=== PATIENT | female | born 1985 | race American Indian/Alaskan Native ===

== ENCOUNTER 2017-01-11 17:24 | Outpatient (CLI) | payer MEDICAID ==
[2017-01-11 18:42] VITALS: BP 121/79
== END 2017-01-11 20:20 | disposition home or self-care (01) ==
LOC: TRG 17:24
PROVIDERS: ATTEND Obstetrics & Gynecology
DX: O47.1 False labor at or after 37 completed weeks of gestation (principal); Z3A.37 37 weeks gestation of pregnancy
CPT/HCPCS: 59025

== ENCOUNTER 2017-01-17 06:35 | Inpatient (IN) | payer MEDICAID ==
[2017-01-17] MEDS: LACTATED RINGERS 1,000 ML IV SCH ×2 (08:05→15:12)
[2017-01-17] MEDS ORDERED: ePHEDrine SULFATE IV PRN ×2 (09:11→16:40)
[2017-01-17] MEDS ORDERED: MINERAL OIL PO PRN (09:11)
[2017-01-17] MEDS ORDERED: BRETHINE SUB-Q PRN (09:11)
[2017-01-17] MEDS ORDERED: XYLOCAINE 2% INFILTRATI ONE ×2 (09:11→19:22)
[2017-01-17] MEDS ORDERED: BRETHINE IVP PRN (09:11)
--- NOTE | 2017-01-17 09:11 | History and Physical Report ---
History of Present Illness Date of examination: 01/17/17 Date of admission: 01/17/17 06:37 Chief complaint: SROM @ 05:23 History of present illness: 31-year-old at 38+3 weeks presents in active labor, she is a [facility] patient. She is a late transfer at 30 weeks otherwise course has been unremarkable. She is GBS negative Past History Past Medical History: no pertinent history Past Surgical History: no surgical history [employer] History: denies: chlamydia, fibroids, gonorrhea, hepatitis B, hepatitis C, herpes, HIV, syphilis, trichomonas Social history: , full code. denies: smoking, alcohol abuse, prescription drug abuse, IV drug use - Obstetrical History Expected Date of Delivery: 01/27/17 Actual Gestation: 38 Week(s) 4 Day(s) : 2 Para: 0 Medications and Allergies Allergies Allergy/AdvReac Type Severity Reaction Status Date / Time No Known Allergies Allergy Verified 02/24/14 20:31 Home Medications Medication Instructions Recorded Confirmed Last Taken Type Vit No.130/Iron/FA 1 each PO QDAY 01/17/17 01/17/17 01/16/17 History [ Tablet] Active Meds: Active Medications Lactated Ringer's (Lactated Ringers) 1,000 mls @ 125 mls/hr IV DIRECT LISY Last Admin: 01/17/17 08:05 Dose: 125 mls/hr Review of Systems Constitutional: no fever, no chills Cardiovascular: no chest pain, no orthopnea, no syncope, no lightheadedness, no dyspnea on exertion, no high blood pressure Respiratory: no cough, no excessive sputum, no shortness of breath, no dyspnea on exertion Gastrointestinal: abdominal pain, no nausea, no vomiting Genitourinary: leakage of fluid, no vaginal bleeding, no vaginal discharge - Vital Signs Vital signs: Vital Signs Pulse Pulse Ox 88 98 01/17/17 07:02 01/17/17 07:02 Temp Pulse Resp BP Pulse Ox 98.5 F 86 14 116/78 98 01/17/17 08:47 01/17/17 08:59 01/17/17 08:47 01/17/17 08:47 01/17/17 08:59 - Physical Exam Abdomen: Positive: normal appearance, soft. Negative: distention, tenderness, guarding, rigidity Genitourinary (Female): Positive: normal external genitalia Uterus: Positive: enlarged (EFW ~ 3800) Adnexa: both: normal Extremities: Positive: normal - Obstetrical FHR: category 1 Cervical Dilatation: 5 Cervical Effacement Percentage: 60 station: -3 Results All other labs normal. Assessment and Plan A: 31-year-old at 33 weeks in active labor -Category 1 tracing P: -Continue routine care -Epidural when necessary -Expectant management -Anticipate normal vaginal delivery - Patient Problems (1) 38 weeks gestation of Current Visit: Yes Status: Acute (2) Active labor at term Current Visit: Yes Status: Acute
[2017-01-17 09:34] LABS: Hematocrit 34.3 % (30.3-42.9); Hemoglobin 10.8 gm/dl (10.1-14.3); Mean Corpuscular HGB Conc 32 % (30-34); Mean Corpuscular Volume 79 fl (79-97); Platelet Count 394 K/mm3 (140-440); Red Blood Count 4.36 M/mm3 (3.65-5.03); White Blood Count 8.9 K/mm3 (4.5-11.0)
[2017-01-17 09:39] LABS: Mean Corpuscular Hemoglobin 25 pg (28-32)
[2017-01-17] MEDS ORDERED: LACTATED RINGERS 1,000 ML IV SCH (10:00)
[2017-01-17] MEDS ORDERED: PITOCin/NS 30 UNIT/500ML 30 UNITS/500 ML BAG IV SCH (10:00)
[2017-01-17] MEDS ORDERED: PITOCin/NS 20 UNIT/1000ML DRIP 20 UNITS/1,000 ML BAG IV SCH (10:00)
--- NOTE | 2017-01-17 13:22 | Progress Note ---
Assessment and Plan A: 31-year-old at 33 weeks in active labor -Category 1 tracing P: -Will start augmentation of labor -Epidural when necessary -Anticipate normal vaginal delivery - Patient Problems (1) 38 weeks gestation of Current Visit: Yes Status: Acute (2) Active labor at term Current Visit: Yes Status: Acute Subjective - Subjective Date of service: 01/17/17 Interval history: No interval cervical change, still category 1 Patient reports: new complaints, loss of fluid, contractions, no vaginal bleeding Objective - Vital Signs Vital Signs: Vital Signs - 12hr 01/17/17 01/17/17 01/17/17 07:02 07:03 07:06 Temperature 98.3 F Pulse Rate 88 84 Respiratory 20 Rate Blood Pressure 130/85 O2 Sat by Pulse 98 Oximetry 01/17/17 01/17/17 01/17/17 07:07 07:12 07:17 Temperature Pulse Rate 98 H 107 H 88 Respiratory Rate Blood Pressure O2 Sat by Pulse 98 99 98 Oximetry 01/17/17 01/17/17 01/17/17 07:22 07:27 07:32 Temperature Pulse Rate 98 H 91 H 80 Respiratory Rate Blood Pressure O2 Sat by Pulse 97 99 98 Oximetry 01/17/17 01/17/17 01/17/17 07:39 07:44 07:49 Temperature Pulse Rate 86 84 105 H Respiratory Rate Blood Pressure O2 Sat by Pulse 97 98 97 Oximetry 01/17/17 01/17/17 01/17/17 07:54 07:59 08:04 Temperature Pulse Rate 97 H 95 H 94 H Respiratory Rate Blood Pressure O2 Sat by Pulse 99 99 97 Oximetry 01/17/17 01/17/17 01/17/17 08:09 08:14 08:19 Temperature Pulse Rate 89 95 H 86 Respiratory Rate Blood Pressure O2 Sat by Pulse 97 96 97 Oximetry 01/17/17 01/17/17 01/17/17 08:24 08:29 08:31 Temperature Pulse Rate 90 81 88 Respiratory Rate Blood Pressure O2 Sat by Pulse 97 96 94 Oximetry 01/17/17 01/17/17 01/17/17 08:34 08:38 08:39 Temperature Pulse Rate 85 91 H 85 Respiratory Rate Blood Pressure O2 Sat by Pulse 97 93 90 Oximetry 01/17/17 01/17/17 01/17/17 08:44 08:47 08:49 Temperature 98.5 F Pulse Rate 84 110 H 89 Respiratory 14 Rate Blood Pressure 116/78 O2 Sat by Pulse 97 96 Oximetry 01/17/17 05/14 01/ 08:54 08:59 09:04 Temperature Pulse Rate 92 H 86 90 Respiratory Rate Blood Pressure O2 Sat by Pulse 98 98 98 Oximetry 01/17/17 05//17 05/ 10:11 10:16 10:17 Temperature Pulse Rate 83 84 100 H Respiratory Rate Blood Pressure 117/86 O2 Sat by Pulse 97 97 Oximetry 01/17/17//14 01/ 10:21 10:26 10:31 Temperature Pulse Rate 80 81 92 H Respiratory Rate Blood Pressure O2 Sat by Pulse 97 98 98 Oximetry 01/17/17//01/17/17 10:36 10:41 10:46 Temperature Pulse Rate 100 H 86 81 Respiratory Rate Blood Pressure O2 Sat by Pulse 98 97 98 Oximetry 01/17/1701/17/01/17/17 10:51 10:56 11:01 Temperature Pulse Rate 107 H 102 H 93 H Respiratory Rate Blood Pressure O2 Sat by Pulse 98 97 99 Oximetry 01/17/17 01/17/17 01/17/17 11:06 11:07 11:11 Temperature Pulse Rate 91 H 81 104 H Respiratory Rate Blood Pressure 135/82 O2 Sat by Pulse 98 98 Oximetry 01/17/17//01/17/17 11:14 11:16 11:21 Temperature Pulse Rate 93 H 101 H Respiratory 14 Rate Blood Pressure O2 Sat by Pulse 98 97 Oximetry 01/17/1701/17/01/17/17 11:26 11:31 11:36 Temperature Pulse Rate 91 H 89 102 H Respiratory Rate Blood Pressure O2 Sat by Pulse 97 97 97 Oximetry 01/17/17 05/20/17 05/ 11:41 11:46 11:51 Temperature Pulse Rate 86 89 106 H Respiratory Rate Blood Pressure O2 Sat by Pulse 98 98 98 Oximetry 01/17/17 05/20/17 /20 11:56 12:01 12:06 Temperature Pulse Rate 126 H 107 H 103 H Respiratory Rate Blood Pressure O2 Sat by Pulse 99 97 98 Oximetry 01/17/17 05/17 01/17/17 12:08 12:11 12:16 Temperature Pulse Rate 100 H 87 85 Respiratory Rate Blood Pressure 126/85 O2 Sat by Pulse 97 97 Oximetry 01/17/17 01/17/17 01/17/17 12:21 12:26 12:31 Temperature Pulse Rate 103 H 103 H 88 Respiratory Rate Blood Pressure O2 Sat by Pulse 98 98 98 Oximetry 01/17/17 01/17/17 01/17/17 12:36 12:41 12:46 Temperature Pulse Rate 106 H 88 96 H Respiratory Rate Blood Pressure O2 Sat by Pulse 98 98 98 Oximetry 01/17/17 01/17/17 01/17/17 12:51 12:56 13:01 Temperature Pulse Rate 94 H 95 H 93 H Respiratory Rate Blood Pressure O2 Sat by Pulse 98 98 97 Oximetry 01/17/17 01/17/17 13:06 13:07 Temperature Pulse Rate 92 H 92 H Respiratory Rate Blood Pressure 136/87 O2 Sat by Pulse 99 Oximetry - Exam FHR: category 1 Cervical Dilatation: 6 (Per RN exam) - Labs Labs: Abnormal Labs 01/17/17 09:20 MCH 25 L RDW 18.0 H Laboratory Results - last 24 hr 01/17/17 01/17/17 09:20 09:20 WBC 8.9 RBC 4.36 Hgb 10.8 Hct 34.3 MCV 79 MCH 25 L MCHC 32 RDW 18.0 H Plt Count 394 Blood Type O POSITIVE Antibody Screen TNR DARIAN Antibody Screen Negative
--- NOTE | 2017-01-17 14:58 | Progress Note ---
Assessment and Plan A: 31-year-old at 38 weeks in active labor -Category 1 tracing P: -Place IUPC -Continue augmentation of labor -Epidural when necessary -Anticipate normal vaginal delivery - Patient Problems (1) 38 weeks gestation of Current Visit: Yes Status: Acute (2) Active labor at term Current Visit: Yes Status: Acute Subjective - Subjective Date of service: 01/17/17 Interval history: No interval cervical change, still category 1. RN unable to trace contractions, will place IUPC Patient reports: new complaints, loss of fluid, contractions, no vaginal bleeding Objective - Vital Signs Vital Signs: Vital Signs - 12hr 01/17/17 01/17/17 01/17/17 07:02 07:03 07:06 Temperature 98.3 F Pulse Rate 88 84 Pulse Rate [ Right From Monitor] Respiratory 20 Rate Blood Pressure 130/85 Blood Pressure [Right Arm] O2 Sat by Pulse 98 Oximetry 01/17/17 01/17/17 01/17/17 07:07 07:12 07:17 Temperature Pulse Rate 98 H 107 H 88 Pulse Rate [ Right From Monitor] Respiratory Rate Blood Pressure Blood Pressure [Right Arm] O2 Sat by Pulse 98 99 98 Oximetry 01/17/17 01/17/17 01/17/17 07:22 07:27 07:32 Temperature Pulse Rate 98 H 91 H 80 Pulse Rate [ Right From Monitor] Respiratory Rate Blood Pressure Blood Pressure [Right Arm] O2 Sat by Pulse 97 99 98 Oximetry 01/17/17 01/17/17 01/17/17 07:39 07:44 07:49 Temperature Pulse Rate 86 84 105 H Pulse Rate [ Right From Monitor] Respiratory Rate Blood Pressure Blood Pressure [Right Arm] O2 Sat by Pulse 97 98 97 Oximetry 01/17/17 01/17/17 01/17/17 07:54 07:59 08:04 Temperature Pulse Rate 97 H 95 H 94 H Pulse Rate [ Right From Monitor] Respiratory Rate Blood Pressure Blood Pressure [Right Arm] O2 Sat by Pulse 99 99 97 Oximetry 01/17/17 01/17/17 01/17/17 08:09 08:14 08:19 Temperature Pulse Rate 89 95 H 86 Pulse Rate [ Right From Monitor] Respiratory Rate Blood Pressure Blood Pressure [Right Arm] O2 Sat by Pulse 97 96 97 Oximetry 01/17/17 01/17/17 01/17/17 08:24 08:29 08:31 Temperature Pulse Rate 90 81 88 Pulse Rate [ Right From Monitor] Respiratory Rate Blood Pressure Blood Pressure [Right Arm] O2 Sat by Pulse 97 96 94 Oximetry 01/17/17 01/17/17 01/17/17 08:34 08:38 08:39 Temperature Pulse Rate 85 91 H 85 Pulse Rate [ Right From Monitor] Respiratory Rate Blood Pressure Blood Pressure [Right Arm] O2 Sat by Pulse 97 93 90 Oximetry 01/17/17 01/17/17 01/17/17 08:44 08:47 08:49 Temperature 98.5 F Pulse Rate 84 110 H 89 Pulse Rate [ Right From Monitor] Respiratory 14 Rate Blood Pressure 116/78 Blood Pressure [Right Arm] O2 Sat by Pulse 97 96 Oximetry 01/17/17 01/17/17 01/17/17 08:54 08:59 09:04 Temperature Pulse Rate 92 H 86 90 Pulse Rate [ Right From Monitor] Respiratory Rate Blood Pressure Blood Pressure [Right Arm] O2 Sat by Pulse 98 98 98 Oximetry 01/17/17 01/17/17 01/17/17 10:11 10:16 10:17 Temperature Pulse Rate 83 84 100 H Pulse Rate [ Right From Monitor] Respiratory Rate Blood Pressure 117/86 Blood Pressure [Right Arm] O2 Sat by Pulse 97 97 Oximetry 01/17/17 01/17/17 01/17/17 10:21 10:26 10:31 Temperature Pulse Rate 80 81 92 H Pulse Rate [ Right From Monitor] Respiratory Rate Blood Pressure Blood Pressure [Right Arm] O2 Sat by Pulse 97 98 98 Oximetry 01/17/17 01/17/17 01/17/17 10:36 10:41 10:46 Temperature Pulse Rate 100 H 86 81 Pulse Rate [ Right From Monitor] Respiratory Rate Blood Pressure Blood Pressure [Right Arm] O2 Sat by Pulse 98 97 98 Oximetry 01/17/17 01/17/17 01/17/17 10:51 10:56 11:01 Temperature Pulse Rate 107 H 102 H 93 H Pulse Rate [ Right From Monitor] Respiratory Rate Blood Pressure Blood Pressure [Right Arm] O2 Sat by Pulse 98 97 99 Oximetry 01/17/17 01/17/17 01/17/17 11:06 11:07 11:11 Temperature Pulse Rate 91 H 81 104 H Pulse Rate [ Right From Monitor] Respiratory Rate Blood Pressure 135/82 Blood Pressure [Right Arm] O2 Sat by Pulse 98 98 Oximetry 01/17/17 01/17/17 01/17/17 11:14 11:16 11:21 Temperature Pulse Rate 93 H 101 H Pulse Rate [ Right From Monitor] Respiratory 14 Rate Blood Pressure Blood Pressure [Right Arm] O2 Sat by Pulse 98 97 Oximetry 01/17/17 01/17/17 01/17/17 11:26 11:31 11:36 Temperature Pulse Rate 91 H 89 102 H Pulse Rate [ Right From Monitor] Respiratory Rate Blood Pressure Blood Pressure [Right Arm] O2 Sat by Pulse 97 97 97 Oximetry 01/17/17 01/17/17 01/17/17 11:41 11:46 11:51 Temperature Pulse Rate 86 89 106 H Pulse Rate [ Right From Monitor] Respiratory Rate Blood Pressure Blood Pressure [Right Arm] O2 Sat by Pulse 98 98 98 Oximetry 01/17/17 01/17/17 01/17/17 11:56 12:01 12:06 Temperature Pulse Rate 126 H 107 H 103 H Pulse Rate [ Right From Monitor] Respiratory Rate Blood Pressure Blood Pressure [Right Arm] O2 Sat by Pulse 99 97 98 Oximetry 01/17/17 01/17/17 01/17/17 12:08 12:11 12:16 Temperature Pulse Rate 100 H 87 85 Pulse Rate [ Right From Monitor] Respiratory Rate Blood Pressure 126/85 Blood Pressure [Right Arm] O2 Sat by Pulse 97 97 Oximetry 01/17/17 01/17/17 01/17/17 12:21 12:26 12:31 Temperature Pulse Rate 103 H 103 H 88 Pulse Rate [ Right From Monitor] Respiratory Rate Blood Pressure Blood Pressure [Right Arm] O2 Sat by Pulse 98 98 98 Oximetry 01/17/17 01/17/17 01/17/17 12:36 12:41 12:46 Temperature Pulse Rate 106 H 88 96 H Pulse Rate [ Right From Monitor] Respiratory Rate Blood Pressure Blood Pressure [Right Arm] O2 Sat by Pulse 98 98 98 Oximetry 01/17/17 01/17/17 01/17/17 12:51 12:56 13:01 Temperature Pulse Rate 94 H 95 H 93 H Pulse Rate [ Right From Monitor] Respiratory Rate Blood Pressure Blood Pressure [Right Arm] O2 Sat by Pulse 98 98 97 Oximetry 01/17/17 01/17/17 01/17/17 13:06 13:07 13:26 Temperature Pulse Rate 92 H 92 H 83 Pulse Rate [ Right From Monitor] Respiratory Rate Blood Pressure 136/87 Blood Pressure [Right Arm] O2 Sat by Pulse 99 99 Oximetry 01/17/17 01/17/17 01/17/17 13:31 13:36 13:41 Temperature 98.4 F Pulse Rate 85 88 83 Pulse Rate [ 86 Right From Monitor] Respiratory 14 Rate Blood Pressure Blood Pressure 136/87 [Right Arm] O2 Sat by Pulse 99 99 99 Oximetry 01/17/17 01/17/17 01/17/17 13:46 13:51 13:56 Temperature Pulse Rate 89 82 89 Pulse Rate [ Right From Monitor] Respiratory Rate Blood Pressure Blood Pressure [Right Arm] O2 Sat by Pulse 99 99 98 Oximetry 01/17/17 01/17/17 01/17/17 14:01 14:06 14:07 Temperature Pulse Rate 77 79 78 Pulse Rate [ Right From Monitor] Respiratory Rate Blood Pressure 121/65 Blood Pressure [Right Arm] O2 Sat by Pulse 99 98 Oximetry 01/17/17 01/17/17 01/17/17 14:11 14:16 14:21 Temperature Pulse Rate 73 80 82 Pulse Rate [ Right From Monitor] Respiratory Rate Blood Pressure Blood Pressure [Right Arm] O2 Sat by Pulse 99 98 98 Oximetry 01/17/17 01/17/17 01/17/17 14:26 14:31 14:36 Temperature Pulse Rate 75 81 74 Pulse Rate [ Right From Monitor] Respiratory Rate Blood Pressure Blood Pressure [Right Arm] O2 Sat by Pulse 98 99 99 Oximetry 01/17/17 01/17/17 14:41 14:46 Temperature Pulse Rate 71 95 H Pulse Rate [ Right From Monitor] Respiratory Rate Blood Pressure Blood Pressure [Right Arm] O2 Sat by Pulse 99 99 Oximetry - Exam FHR: category 1 Cervical Dilatation: 6 station: -2 - Labs Labs: Abnormal Labs 01/17/17 09:20 MCH 25 L RDW 18.0 H Laboratory Results - last 24 hr 01/17/17 01/17/17 09:20 09:20 WBC 8.9 RBC 4.36 Hgb 10.8 Hct 34.3 MCV 79 MCH 25 L MCHC 32 RDW 18.0 H Plt Count 394 Blood Type O POSITIVE Antibody Screen TNR DARIAN Antibody Screen Negative
[2017-01-17] MEDS: SUBLIMAZE IV PRN ×3 (15:42→21:40)
[2017-01-17] MEDS ORDERED: ePHEDrine SULFATE ONE (16:29)
[2017-01-17] MEDS ORDERED: NARCAN 2 MG/2 ML IV PRN (16:40)
--- NOTE | 2017-01-17 16:40 | Anesthesia Consultation ---
Anesthesia Consult and Med Hx Date of service: 01/17/17 - Airway Anesthetic Teeth Evaluation: Good ROM Head & Neck: Adequate Mental/Hyoid Distance: Adequate Mallampati Class: Class III Intubation Access Assessment: Possibly Difficult - Pulmonary Exam CTA: Yes - Cardiac Exam Cardiac Exam: RRR - Pre-Operative Health Status ASA Pre-Surgery Classification: ASA3 Proposed Anesthetic Plan: Epidural, Spinal - Pulmonary Hx Asthma: No COPD: No Hx Pneumonia: No - Cardiovascular System Hx Hypertension: No - Central Nervous System Hx Seizures: No Hx Psychiatric Problems: No - Endocrine Hx Renal Disease: No Hx End Stage Renal Disease: No Hx Hypothyroidism: No Hx Hyperthyroidism: No - Hematic Hx Anemia: No Hx Sickle Cell Disease: No - Other Systems Hx Alcohol Use: No Hx Obesity: Yes (morbid obesity, BMI > 40) - Additional Comments Anesthesia Medical History Comments: +[id number]
[2017-01-17] MEDS ORDERED: fentaNYL-BUPIV 2 MCG/ML-0.125% 200 MCG/100 ML BAG EPIDURAL SCH (17:00)
--- NOTE | 2017-01-17 17:20 | Progress Note ---
Subjective Date of service: 01/17/17 Interval history: Epidural aborted due to patient's request. I made one attempt at the L4/L5 level. MARTY @ 9 cm. However but did not get any CSF when spinal needle placed. Readjusted the tuoy needle several times but still unable to get CSF return. Discussed with patient that I would need to go to a different level. However, she did not want to continue so procedure aborted. Objective - Constitutional Vitals: Vital Signs - 12hr 01/17/17 01/17/17 01/17/17 07:02 07:03 07:06 Temperature 98.3 F Pulse Rate 88 84 Pulse Rate [ Right From Monitor] Respiratory 20 Rate Blood Pressure 130/85 Blood Pressure [Right Arm] O2 Sat by Pulse 98 Oximetry 01/17/17 01/17/17 01/17/17 07:07 07:12 07:17 Temperature Pulse Rate 98 H 107 H 88 Pulse Rate [ Right From Monitor] Respiratory Rate Blood Pressure Blood Pressure [Right Arm] O2 Sat by Pulse 98 99 98 Oximetry 01/17/17 01/17/17 01/17/17 07:22 07:27 07:32 Temperature Pulse Rate 98 H 91 H 80 Pulse Rate [ Right From Monitor] Respiratory Rate Blood Pressure Blood Pressure [Right Arm] O2 Sat by Pulse 97 99 98 Oximetry 01/17/17 01/17/17 01/17/17 07:39 07:44 07:49 Temperature Pulse Rate 86 84 105 H Pulse Rate [ Right From Monitor] Respiratory Rate Blood Pressure Blood Pressure [Right Arm] O2 Sat by Pulse 97 98 97 Oximetry 01/17/17 01/17/17 01/17/17 07:54 07:59 08:04 Temperature Pulse Rate 97 H 95 H 94 H Pulse Rate [ Right From Monitor] Respiratory Rate Blood Pressure Blood Pressure [Right Arm] O2 Sat by Pulse 99 99 97 Oximetry 01/17/17 01/17/17 01/17/17 08:09 08:14 08:19 Temperature Pulse Rate 89 95 H 86 Pulse Rate [ Right From Monitor] Respiratory Rate Blood Pressure Blood Pressure [Right Arm] O2 Sat by Pulse 97 96 97 Oximetry 01/17/17 01/17/17 01/17/17 08:24 08:29 08:31 Temperature Pulse Rate 90 81 88 Pulse Rate [ Right From Monitor] Respiratory Rate Blood Pressure Blood Pressure [Right Arm] O2 Sat by Pulse 97 96 94 Oximetry 01/17/17 01/17/17 01/17/17 08:34 08:38 08:39 Temperature Pulse Rate 85 91 H 85 Pulse Rate [ Right From Monitor] Respiratory Rate Blood Pressure Blood Pressure [Right Arm] O2 Sat by Pulse 97 93 90 Oximetry 01/17/17 01/17/17 01/17/17 08:44 08:47 08:49 Temperature 98.5 F Pulse Rate 84 110 H 89 Pulse Rate [ Right From Monitor] Respiratory 14 Rate Blood Pressure 116/78 Blood Pressure [Right Arm] O2 Sat by Pulse 97 96 Oximetry 01/17/17 01/17/17 01/17/17 08:54 08:59 09:04 Temperature Pulse Rate 92 H 86 90 Pulse Rate [ Right From Monitor] Respiratory Rate Blood Pressure Blood Pressure [Right Arm] O2 Sat by Pulse 98 98 98 Oximetry 01/17/17 01/17/17 01/17/17 10:11 10:16 10:17 Temperature Pulse Rate 83 84 100 H Pulse Rate [ Right From Monitor] Respiratory Rate Blood Pressure 117/86 Blood Pressure [Right Arm] O2 Sat by Pulse 97 97 Oximetry 01/17/17 01/17/17 01/17/17 10:21 10:26 10:31 Temperature Pulse Rate 80 81 92 H Pulse Rate [ Right From Monitor] Respiratory Rate Blood Pressure Blood Pressure [Right Arm] O2 Sat by Pulse 97 98 98 Oximetry 01/17/17 01/17/17 01/17/17 10:36 10:41 10:46 Temperature Pulse Rate 100 H 86 81 Pulse Rate [ Right From Monitor] Respiratory Rate Blood Pressure Blood Pressure [Right Arm] O2 Sat by Pulse 98 97 98 Oximetry 01/17/17 01/17/17 01/17/17 10:51 10:56 11:01 Temperature Pulse Rate 107 H 102 H 93 H Pulse Rate [ Right From Monitor] Respiratory Rate Blood Pressure Blood Pressure [Right Arm] O2 Sat by Pulse 98 97 99 Oximetry 01/17/17 01/17/17 01/17/17 11:06 11:07 11:11 Temperature Pulse Rate 91 H 81 104 H Pulse Rate [ Right From Monitor] Respiratory Rate Blood Pressure 135/82 Blood Pressure [Right Arm] O2 Sat by Pulse 98 98 Oximetry 01/17/17 01/17/17 01/17/17 11:14 11:16 11:21 Temperature Pulse Rate 93 H 101 H Pulse Rate [ Right From Monitor] Respiratory 14 Rate Blood Pressure Blood Pressure [Right Arm] O2 Sat by Pulse 98 97 Oximetry 01/17/17 01/17/17 01/17/17 11:26 11:31 11:36 Temperature Pulse Rate 91 H 89 102 H Pulse Rate [ Right From Monitor] Respiratory Rate Blood Pressure Blood Pressure [Right Arm] O2 Sat by Pulse 97 97 97 Oximetry 01/17/17 01/17/17 01/17/17 11:41 11:46 11:51 Temperature Pulse Rate 86 89 106 H Pulse Rate [ Right From Monitor] Respiratory Rate Blood Pressure Blood Pressure [Right Arm] O2 Sat by Pulse 98 98 98 Oximetry 01/17/17 01/17/17 01/17/17 11:56 12:01 12:06 Temperature Pulse Rate 126 H 107 H 103 H Pulse Rate [ Right From Monitor] Respiratory Rate Blood Pressure Blood Pressure [Right Arm] O2 Sat by Pulse 99 97 98 Oximetry 01/17/17 01/17/17 01/17/17 12:08 12:11 12:16 Temperature Pulse Rate 100 H 87 85 Pulse Rate [ Right From Monitor] Respiratory Rate Blood Pressure 126/85 Blood Pressure [Right Arm] O2 Sat by Pulse 97 97 Oximetry 01/17/17 01/17/17 01/17/17 12:21 12:26 12:31 Temperature Pulse Rate 103 H 103 H 88 Pulse Rate [ Right From Monitor] Respiratory Rate Blood Pressure Blood Pressure [Right Arm] O2 Sat by Pulse 98 98 98 Oximetry 01/17/17 01/17/17 01/17/17 12:36 12:41 12:46 Temperature Pulse Rate 106 H 88 96 H Pulse Rate [ Right From Monitor] Respiratory Rate Blood Pressure Blood Pressure [Right Arm] O2 Sat by Pulse 98 98 98 Oximetry 01/17/17 01/17/17 01/17/17 12:51 12:56 13:01 Temperature Pulse Rate 94 H 95 H 93 H Pulse Rate [ Right From Monitor] Respiratory Rate Blood Pressure Blood Pressure [Right Arm] O2 Sat by Pulse 98 98 97 Oximetry 01/17/17 01/17/17 01/17/17 13:06 13:07 13:26 Temperature Pulse Rate 92 H 92 H 83 Pulse Rate [ Right From Monitor] Respiratory Rate Blood Pressure 136/87 Blood Pressure [Right Arm] O2 Sat by Pulse 99 99 Oximetry 01/17/17 01/17/17 01/17/17 13:31 13:36 13:41 Temperature 98.4 F Pulse Rate 85 88 83 Pulse Rate [ 86 Right From Monitor] Respiratory 14 Rate Blood Pressure Blood Pressure 136/87 [Right Arm] O2 Sat by Pulse 99 99 99 Oximetry 01/17/17 01/17/17 01/17/17 13:46 13:51 13:56 Temperature Pulse Rate 89 82 89 Pulse Rate [ Right From Monitor] Respiratory Rate Blood Pressure Blood Pressure [Right Arm] O2 Sat by Pulse 99 99 98 Oximetry 01/17/17 01/17/17 01/17/17 14:01 14:06 14:07 Temperature Pulse Rate 77 79 78 Pulse Rate [ Right From Monitor] Respiratory Rate Blood Pressure 121/65 Blood Pressure [Right Arm] O2 Sat by Pulse 99 98 Oximetry 01/17/17 01/17/17 01/17/17 14:11 14:16 14:21 Temperature Pulse Rate 73 80 82 Pulse Rate [ Right From Monitor] Respiratory Rate Blood Pressure Blood Pressure [Right Arm] O2 Sat by Pulse 99 98 98 Oximetry 01/17/17 01/17/17 01/17/17 14:26 14:31 14:36 Temperature Pulse Rate 75 81 74 Pulse Rate [ Right From Monitor] Respiratory Rate Blood Pressure Blood Pressure [Right Arm] O2 Sat by Pulse 98 99 99 Oximetry 01/17/17 01/17/17 01/17/17 14:41 14:46 14:51 Temperature Pulse Rate 71 95 H 82 Pulse Rate [ Right From Monitor] Respiratory Rate Blood Pressure Blood Pressure [Right Arm] O2 Sat by Pulse 99 99 99 Oximetry 01/17/17 01/17/17 01/17/17 14:56 15:01 15:06 Temperature Pulse Rate 81 75 77 Pulse Rate [ Right From Monitor] Respiratory Rate Blood Pressure Blood Pressure [Right Arm] O2 Sat by Pulse 99 99 100 Oximetry 01/17/17 01/17/17 01/17/17 15:08 15:11 15:16 Temperature Pulse Rate 79 76 83 Pulse Rate [ Right From Monitor] Respiratory Rate Blood Pressure 123/74 Blood Pressure [Right Arm] O2 Sat by Pulse 100 100 Oximetry 01/17/17 01/17/17 01/17/17 15:21 15:26 15:31 Temperature Pulse Rate 77 88 99 H Pulse Rate [ Right From Monitor] Respiratory Rate Blood Pressure Blood Pressure [Right Arm] O2 Sat by Pulse 100 99 100 Oximetry 01/17/17 01/17/17 01/17/17 15:36 15:41 15:46 Temperature Pulse Rate 97 H 80 95 H Pulse Rate [ Right From Monitor] Respiratory Rate Blood Pressure Blood Pressure [Right Arm] O2 Sat by Pulse 100 99 97 Oximetry 01/17/17 01/17/17 01/17/17 15:51 15:56 16:01 Temperature Pulse Rate 82 81 105 H Pulse Rate [ Right From Monitor] Respiratory Rate Blood Pressure Blood Pressure [Right Arm] O2 Sat by Pulse 97 97 98 Oximetry 01/17/17 01/17/17 01/17/17 16:06 16:07 16:11 Temperature Pulse Rate 86 85 104 H Pulse Rate [ Right From Monitor] Respiratory Rate Blood Pressure 131/82 Blood Pressure [Right Arm] O2 Sat by Pulse 98 99 Oximetry 01/17/17 01/17/17 01/17/17 16:16 16:21 16:26 Temperature Pulse Rate 80 105 H 88 Pulse Rate [ Right From Monitor] Respiratory Rate Blood Pressure Blood Pressure [Right Arm] O2 Sat by Pulse 98 100 98 Oximetry 01/17/17 01/17/17 01/17/17 16:27 16:31 16:37 Temperature Pulse Rate 106 H 92 H 98 H Pulse Rate [ Right From Monitor] Respiratory Rate Blood Pressure Blood Pressure [Right Arm] O2 Sat by Pulse 80 L 100 99 Oximetry 01/17/17 01/17/17 01/17/17 16:40 16:42 16:47 Temperature Pulse Rate 89 99 H 86 Pulse Rate [ Right From Monitor] Respiratory Rate Blood Pressure 130/88 133/87 Blood Pressure [Right Arm] O2 Sat by Pulse 99 99 Oximetry 01/17/17 01/17/17 01/17/17 16:50 16:52 16:54 Temperature Pulse Rate 91 H 88 92 H Pulse Rate [ Right From Monitor] Respiratory Rate Blood Pressure 143/72 143/67 133/60 Blood Pressure [Right Arm] O2 Sat by Pulse 96 Oximetry 01/17/17 01/17/17 01/17/17 16:56 16:57 16:58 Temperature Pulse Rate 90 89 101 H Pulse Rate [ Right From Monitor] Respiratory Rate Blood Pressure 134/63 134/68 Blood Pressure [Right Arm] O2 Sat by Pulse 98 Oximetry 01/17/17 01/17/17 01/17/17 17:00 17:02 17:04 Temperature Pulse Rate 91 H 104 H 101 H Pulse Rate [ Right From Monitor] Respiratory Rate Blood Pressure 130/63 138/85 134/93 Blood Pressure [Right Arm] O2 Sat by Pulse 99 Oximetry 01/17/17 01/17/17 01/17/17 17:06 17:07 17:08 Temperature Pulse Rate 87 91 H 99 H Pulse Rate [ Right From Monitor] Respiratory Rate Blood Pressure 137/75 131/74 Blood Pressure [Right Arm] O2 Sat by Pulse 99 Oximetry 01/17/17 17:11 Temperature Pulse Rate 87 Pulse Rate [ Right From Monitor] Respiratory Rate Blood Pressure 157/70 Blood Pressure [Right Arm] O2 Sat by Pulse Oximetry - Labs CBC & Chem 7: 01/17/17 09:20 Labs: Abnormal lab results 01/17/17 Range/Units 09:20 MCH 25 L (28-32) pg RDW 18.0 H (13.2-15.2) %
--- NOTE | 2017-01-17 18:31 | Event Note ---
Date: 01/17/17 Patient currently is 8 cm dilated. Vaginal exams are extremely uncomfortable for the patient, she declined to have an epidural at this time. Tracing was category 1 but with tachysystole at 12 mu per minute. Plan at this time is to reduce Pitocin to 6 mu/min. We will reassess in 30 min -1 hour Consider increasing Pit if tachysystole resolved
[2017-01-17] MEDS ORDERED: STADOL ONE (19:37)
[2017-01-17] MEDS ORDERED: STADOL IV PRN (19:38)
--- NOTE | 2017-01-17 23:59 | Procedure Note ---
OB Delivery Note - Delivery Date of Delivery: 01/17/17 Surgeon: JOSE LUIS LANDRY Estimated blood loss: 100cc - Vaginal Delivery presentation: vertex Delivery position: OA Delivery induction: none Delivery augmentation: pitocin Delivery monitor: external FHT, external uterine, internal uterine Route of delivery: Delivery placenta: spontaneous Delivery cord: nuchal cord (loose), 3 umbilical vessels Episiotomy: none Delivery laceration: 1st degree (patient declined repair), vaginal side wall ( patient declined repair) Anesthesia: none - Infant A at 1 minute: 7 at 5 minutes: 9 Infant Gender: Male (time of delivery was 23:44, infant weight was 5 lbs. 5 oz. or 2414 g)
[2017-01-18] MEDS ORDERED: TUCKS PAD TP PRN (00:01)
[2017-01-18] MEDS ORDERED: LANSINOH TP PRN (00:01)
[2017-01-18] MEDS ORDERED: PHENERGAN PR PRN (00:01)
[2017-01-18] MEDS ORDERED: BENADRYL PO PRN (00:01)
[2017-01-18] MEDS ORDERED: ZOFRAN IV PRN (00:01)
[2017-01-18] MEDS ORDERED: ANUCORT-HC PR PRN (00:01)
[2017-01-18] MEDS ORDERED: MILK OF MAGNESIA PO PRN (00:01)
[2017-01-18] MEDS ORDERED: TYLENOL PO PRN (00:01)
[2017-01-18] MEDS ORDERED: NORCO 5/325 PO PRN (00:01)
[2017-01-18] MEDS ORDERED: DERMOPLAST TP PRN (00:01)
[2017-01-18] MEDS ORDERED: DULCOLAX PR PRN (00:01)
[2017-01-18] MEDS ORDERED: PHENERGAN PO PRN (00:01)
[2017-01-18] MEDS ORDERED: PITOCin/NS 20 UNIT/1000ML DRIP 20 UNITS/1,000 ML BAG IV SCH (01:00)
[2017-01-18] MEDS ORDERED: SODIUM CHLORIDE FLUSH SYRINGE 10 ML IV NR (01:00)
[2017-01-18] MEDS: MOTRIN PO SCH ×3 (02:29→18:37)
[2017-01-18] MEDS: SENOKOT S PO SCH (03:33)
[2017-01-18] MEDS ORDERED: COLACE PO SCH (10:00)
[2017-01-18] MEDS ORDERED: PRENATAL VITAMIN PO SCH (10:00)
[2017-01-18] MEDS: FEOSOL PO SCH ×2 (10:19→22:20)
--- NOTE | 2017-01-18 10:21 | Progress Note ---
Assessment and Plan PPD# 1 s/p -Doing well P: -Continue routine care -Anticipate discharge in 24-48 hours - Patient Problems (1) 38 weeks gestation of Current Visit: Yes Status: Acute (2) Active labor at term Current Visit: Yes Status: Acute Subjective - Subjective Date of service: 01/18/17 Principal diagnosis: PPD# 1 Interval history: Patient seen and examined, stable doing well. Ambulating without difficulty and has adequate bowel bladder function Patient reports: appetite normal, voiding normally, pain well controlled, ambulating normally, no dizzy ambulation, no nauseated : doing well Objective - Vital Signs Latest vital signs: Vital Signs Temp Pulse Pulse Resp BP BP Pulse Ox 01/18/17 09:45 98.4 F 83 18 126/82 01/18/17 04:00 98.6 F 77 18 131/81 01/18/17 01:50 98.6 F 85 18 127/75 01/18/17 01:08 90 98 01/18/17 01:00 86 133/86 01/18/17 00:50 99 H 136/99 01/18/17 00:30 88 136/85 01/18/17 00:15 95 H 131/84 01/18/17 00:10 98.4 F 22 01/18/17 00:00 97 H 134/82 01/17/17 23:11 90 139/86 01/17/17 23:03 90 146/82 01/17/17 22:58 100 H 180/103 01/17/17 22:50 99.0 F 24 01/17/17 22:41 103 H 166/76 01/17/17 22:39 99 H 97 01/17/17 21:41 88 143/75 01/17/17 21:40 20 01/17/17 21:19 98.0 F 22 01/17/17 21:02 93 H 97 01/17/17 20:46 77 132/74 01/17/17 20:45 88 161/81 01/17/17 20:43 89 98 01/17/17 20:38 91 H 96 01/17/17 20:33 78 98 01/17/17 20:28 84 98 01/17/17 20:23 80 98 01/17/17 20:18 88 96 01/17/17 19:59 98.3 F 20 05/20/17 19:40 22 05/20/17 19:28 105 H 139/90 0520/17 19:26 97 H 171/107 0520/17 19:20 97 H 99 0520/17 19:15 95 H 100 0520/17 19:10 94 H 98 0520/17 19:05 102 H 99 0520/17 19:00 98.3 F 85 22 100 0520/17 18:57 90 139/85 0520/17 18:55 87 100 0520/17 18:50 88 100 0520/17 18:45 97 H 98 0520/17 18:40 91 H 99 0520/17 18:35 98 H 99 0520/17 18:30 76 100 0520/17 18:25 101 H 99 0520/17 18:20 84 99 0520/17 18:15 102 H 100 052017 18:10 93 H 99 052017 18:05 105 H 99 052017 18:00 85 99 052017 17:55 102 H 97 052017 17:53 98.2 F 89 12 109/76 0520/17 17:50 85 97 0520/17 17:45 93 H 96 052017 17:40 95 H 97 052017 17:35 80 98 0520/17 17:32 14 052017 17:30 87 98 0520/17 17:25 86 99 0520/17 17:24 95 H 109/76 0520/17 17:22 87 116/81 0520/17 17:19 86 128/66 0520/17 17:11 87 157/70 0520/17 17:08 99 H 131/74 0520/17 17:07 91 H 99 0520/17 17:06 87 137/75 0520/17 17:04 101 H 134/93 0520/17 17:02 104 H 138/85 99 0520/17 17:00 91 H 130/63 05/20/17 16:58 101 H 134/68 0520/17 16:57 89 98 0520/17 16:56 90 134/63 0520/17 16:54 92 H 133/60 05/20/17 16:52 88 143/67 96 05/20/17 16:50 91 H 143/72 0520/17 16:47 86 99 05/20/17 16:42 99 H 133/87 99 05/20/17 16:40 89 130/88 0520/17 16:37 98 H 99 0520/17 16:31 92 H 100 0520/17 16:27 106 H 80 L 0520/17 16:26 88 98 0520/17 16:21 105 H 100 0520/17 16:16 80 98 0520/17 16:11 104 H 99 0520/17 16:07 85 131/82 0520/17 16:06 86 98 0520/17 16:01 105 H 98 0520/17 15:56 81 97 0520/17 15:51 82 97 0520/17 15:46 95 H 97 0520/17 15:41 80 99 0520/17 15:36 97 H 100 0520/17 15:31 99 H 100 0520/17 15:26 88 99 0520/17 15:21 77 100 0520/17 15:16 83 100 0520/17 15:11 76 100 0520/17 15:08 79 123/74 0520/17 15:06 77 100 0520/17 15:01 75 99 0520/17 14:56 81 99 0520/17 14:51 82 99 0520/17 14:46 95 H 99 0520/17 14:41 71 99 0520/17 14:36 74 99 0520/17 14:31 81 99 05/20/17 14:26 75 98 05/20/17 14:21 82 98 05/20/17 14:16 80 98 05/20/17 14:11 73 99 05/20/17 14:07 78 121/65 0520/17 14:06 79 98 05/20/17 14:01 77 99 05/20/17 13:56 89 98 05/20/17 13:51 82 99 05/20/17 13:46 89 99 05/20/17 13:41 83 99 0520/17 13:36 98.4 F 88 86 14 136/87 99 05/20/17 13:31 85 99 05 13:26 83 99 01/17/17 13:07 92 H 136/87 05 13:06 92 H 99 01/17/17 13:01 93 H 97 01/17/17 12:56 95 H 98 01/17/17 12:51 94 H 98 01/17/17 12:46 96 H 98 01/17/17 12:41 88 98 01/17/17 12:36 106 H 98 01/17/17 12:31 88 98 01/17/17 12:26 103 H 98 01/17/17 12:21 103 H 98 01/17/17 12:16 85 97 01/17/17 12:11 87 97 01/17/17 12:08 100 H 126/85 01/17/17 12:06 103 H 98 01/17/17 12:01 107 H 97 01/17/17 11:56 126 H 99 01/17/17 11:51 106 H 98 01/17/17 11:46 89 98 01/17/17 11:41 86 98 01/17/17 11:36 102 H 97 01/17/17 11:31 89 97 01/17/17 11:26 91 H 97 01/17/17 11:21 101 H 97 01/17/17 11:16 93 H 98 01/17/17 11:14 14 01/17/17 11:11 104 H 98 01/17/17 11:07 81 135/82 01/17/17 11:06 91 H 98 01/17/17 11:01 93 H 99 01/17/17 10:56 102 H 97 01/17/17 10:51 107 H 98 01/17/17 10:46 81 98 01/17/17 10:41 86 97 01/17/17 10:36 100 H 98 01/17/17 10:31 92 H 98 01/17/17 10:26 81 98 01/17/17 10:21 80 97 Intake and Output 01/17/17 0501/18/17 22:59 06:59 14:59 Intake Total 1000 2262 360 Output Total 300 400 Balance 700 1862 360 Intake: IV 1000 1562 Lactated Ringers 1,000 ml 1000 @ 125 mls/hr IV DIRECT LISY Rx#:[id number] Lactated Ringers 1,000 ml 925 @ 125 mls/hr IV DIRECT LISY Rx#:[id number] PITOCin/NS 20 UNIT/1000ML 137 DRIP 20 units In 1,000 ml @ 125 mls/hr IV DIRECT LISY Rx#:[id number] PITOCin/NS 30 UNIT/500ML 500 30 units In 500 ml @ 1 MILLIUNITS/MIN 1 mls/hr IV TITR LISY Rx#:[id number] Oral 300 360 Intake, Free Water 400 Output: Urine 300 400 Indwelling Catheter 300 Void 400 Other: Total, Intake Amount 300 360 Total, Output Amount 300 400 # Voids Void 1 1 Estimated Blood Loss 100 - Exam Abdomen: Present: normal appearance, soft. Absent: distention, tenderness, guarding, rigidity Uterus: Present: fundal height below umbilicus. Absent: tenderness Extremities: Present: normal
--- NOTE | 2017-01-18 10:24 | Discharge Summary ---
Providers - Providers Date of Admission: 01/17/17 06:37 Date of discharge: 01/19/17 Attending physician: JOSE LUIS LANDRY Primary care physician: JOSE LUIS LANDRY Hospitalization Reason for admission: active labor, IUP at term Delivery: Episiotomy: none Laceration: vaginal side wall, 1st degree Other procedures: none complications: none Discharge diagnosis: IUP at term delivered [place] baby: male Hospital course: Uncomplicated hospital course Condition at discharge: Good Disposition: DISCHARGED TO HOME OR SELFCARE - Discharge Diagnoses (1) (normal spontaneous vaginal delivery) Status: Acute (2) 38 weeks gestation of Status: Acute (3) Active labor at term Status: Acute Plan - Discharge Medications Prescriptions: HYDROcodone/APAP 5-325 [[place] 5/325] 1 each PO Q6HR PRN #10 tablet PRN Reason: Pain Ibuprofen [Motrin 600 MG tab] 600 mg PO Q8H PRN #30 tablet PRN Reason: Pain Multivitamin with Iron [Multivitamins with Iron] 1 each PO DAILY #30 tablet - Provider Discharge Summary Activity: no sex for 6 weeks, no heavy lifting 4 weeks, no strenuous exercise Diet: routine Instructions: routine Additional instructions: [] Smoking cessation referral if applicable(refer to patient education folder for contact #) [] Refer to [facility] Booklet Call your doctor immediately for: * Fever > 100.5 * Heavy vaginal bleeding ( >1 pad per hour) * Severe persistent headache * Shortness of breath * Reddened, hot, painful area to leg or breast * Drainage or odor from incision. * Keep incision clean and dry at all times and follow doctor's instructions regarding bathing/showering - Follow up plan Follow up: JOSE LUIS LANDRY MD [Primary Care Provider] - 6 Weeks
[2017-01-18 13:28] LABS: Hematocrit 29.8 % (30.3-42.9); Hemoglobin 9.1 gm/dl (10.1-14.3)
[2017-01-19] MEDS: MOTRIN PO SCH ×2 (00:02→05:31)
[2017-01-19] MEDS: SENOKOT S PO SCH (01:27)
[2017-01-19 12:31] VITALS: BP 104/70
== END 2017-01-19 11:45 | disposition home or self-care (01) | DRG 982 ==
LOC: TRG 06:35 → LD 06:37 → OB 01-18 01:57
PROVIDERS: ADMIT Obstetrics & Gynecology Gynecology; ATTEND Obstetrics & Gynecology Gynecology
PROC: 00JU3ZZ Inspection of Spinal Canal, Percutaneous Approach (ICD-10-PCS; principal; 2017-01-17)
PROC: 10E0XZZ Delivery of Products of Conception, External Approach (ICD-10-PCS; principal; 2017-01-17)
DX: O69.81X0 Labor and delivery complicated by cord around neck, without compression, not applicable or unspecified (principal); Z68.41 Body mass index [BMI] 40.0-44.9, adult; Z3A.38 38 weeks gestation of pregnancy; Z37.0 Single live birth; O99.214 Obesity complicating childbirth; O70.0 First degree perineal laceration during delivery; E66.01 Morbid (severe) obesity due to excess calories; Z53.29 Procedure and treatment not carried out because of patient's decision for other reasons
CPT/HCPCS: 36415; 85014; 85018; 85027; 86850; 86900; 86901; 99211; G0463; J0595; J2590; J3010; J7120